=== PATIENT | male | born 1960 ===

== ENCOUNTER → 2017-11-24 19:37 | Outpatient (CLI) | payer OTHER | END | disposition home or self-care (01) | LOC: RAD 19:37 | DX: M54.6 Pain in thoracic spine (principal); M25.571 Pain in right ankle and joints of right foot ==

== ENCOUNTER 2024-08-16 09:12 | Outpatient (CLI) | payer OTHER | END 2024-08-16 09:19 | disposition home or self-care (01) | LOC: SONOGRAMA 09:12 | PROVIDERS: ATTEND Specialist | DX: E04.1 Nontoxic single thyroid nodule (principal) ==

== ENCOUNTER → 2024-12-27 | Outpatient (CLI) | payer OTHER | END | disposition home or self-care (01) | LOC: TOM 11:05 | PROVIDERS: ATTEND Specialist | DX: R06.89 Other abnormalities of breathing (principal); M21.7 Unequal limb length (acquired); E04.2 Nontoxic multinodular goiter; L04.0 Acute lymphadenitis of face, head and neck ==